=== PATIENT | female | born 1960 | race Caucasian/White ===

== ENCOUNTER → 2023-12-27 11:25 | Outpatient (REF) | payer MEDICARE, SELFPAY | LOC: HWRAD 11:25 | PROVIDERS: ATTENDING PHYSICIAN Student in an Organized Health Care Education/Training Program | DX: R10.32 Left lower quadrant pain (principal); R19.5 Other fecal abnormalities | CPT/HCPCS: 74176 ==

== ENCOUNTER 2024-01-21 12:09 | Emergency (ER) | payer MEDICARE, SELFPAY ==
[2024-01-21] VITALS (7 sets, daily range): BP systolic 123–147; BP diastolic 79–90
[2024-01-21 13:32] LABS: Hematocrit 38.3 % (37.0-47.0); Hemoglobin 13.3 g/dL (12.0-16.0); Mean Corp Hgb Conc. 34.7 g/dL (33.0-37.0); Mean Corpuscular Hgb 31.4 pg (27.0-31.0); Mean Corpuscular Volume 90.3 fL (81.0-99.0); Mean Platelet Volume 10.2 fL (7.4-10.4); Platelet Count 291 10^3/uL (130-400); Red Blood Cell Count 4.24 10^6/uL (4.20-5.40); Red Cell Dist. Width 12.1 % (11.5-14.5); White Blood Cell Count 4.5 10^3/uL (4.8-10.8)
[2024-01-21 13:46] LABS: ALT (SGPT) 32 U/L (0-35); AST (SGOT) 36 U/L (14-36); Albumin 4.3 g/dl (3.5-5.0); Alkaline Phosphatase 60 U/L (38-126); Blood Urea Nitrogen 15 mg/dl (7-17); Calcium 9.5 mg/dl (8.4-10.2); Carbon Dioxide 24 mmol/L (22-30); Chloride 101 mmol/L (98-107); Glucose 120 mg/dl (70-99); Sodium 134 mmol/L (135-145); Total Bilirubin 0.3 mg/dl (0.2-1.3); Total Protein 6.3 g/dl (6.3-8.2); eGFR > 60.00
--- NOTE | 2024-01-21 14:03 | ED.GENMED ---
History of Present Illness
General
Chief Complaint: Abdominal Symptoms
Source: patient
Time Seen by Provider: 01/21/24 12:33
History of Present Illness
History of Present Illness:
This patient is a 63-year-old female who states that about 1 month ago she developed tenderness in her groin that felt like a pulled muscle. She then developed abdominal distention and diarrhea with this. She saw her doctor on December 26,
was referred for CAT scan, and was diagnosed with mild diverticulitis. She changed her diet and did not yet start the prescribed antibiotics and started to feel better. However, by January 14, the pain had returned and she began her
antibiotics which she continues to take now. The pain went away but then came a back mildly yesterday and continues today. She rates it as 4 out of 10 again in the left lower groin area and feels like a pulled muscle. She denies associated
nausea, vomiting, fever, chills, chest pain, shortness of breath, bleeding, or other complaints.
Past History
Past History
ED Past Medical History: Other (Anxiety)
ED Past Surgical History: Cholecystectomy, and Other (Hernia repair, polyp adjacent to colon removal)
Social History
Tobacco: Non-smoker
Alcohol: Occasional
Drug: None
Personal:
Living: with family
Phy Exam
Physical Exam
Physical Exam:
GENERAL: Alert , in no apparent distress
EYE: pupils equal and reactive
NECK: Supple, no significant adenopathy.
ENT: o/p clr, mmm.
CARDIAC: Regular rate and rhythm .
LUNGS: Clear breath sounds bilaterally, no acute respiratory distress, no wheezes/rales/rhonchi
ABDOMEN: Soft, minimal llq tenderness (very minimal), no r/g, no cvat
NEUROLOGICAL: Alert and oriented, no focal neuro deficits
SKIN: Warm and dry, skin intact.
MUSCULOSKELETAL: No edema, well perfused.
PSYCH: Normal and appropriate interaction.
Course
Orders/Labs/Results
Orders:
Orders
01/21/24 13:10
Complete Blood Count/No Diff Urgent
Comprehensive Metabolic Panel Urgent
01/21/24 14:30
CT Abd/pel (oral only)-[facility] Only Urgent
Comment:
Reason For Exam: recent divertic dx, continued pain
Iohexol [Omnipaque] See Protocol PO NOW STA
Abnormal Lab Results
01/21/24
13:10
WBC 4.5 L 10^3/uL
(4.8-10.8)
MCH 31.4 H pg
(27.0-31.0)
Sodium 134 L mmol/L
(135-145)
Glucose 120 H mg/dl
(70-99)
01/21/24 13:10
01/21/24 13:10
Vital Signs
Initial and Last Documented VS:
Initial Vital Signs
Temp Pulse Resp BP Pulse Ox
97.9 F 83 16 147/90 98
01/21/24 12:16 01/21/24 12:16 01/21/24 12:16 01/21/24 12:16 01/21/24 12:16
Last Documented Vital Signs
Temp Pulse Resp BP Pulse Ox
97.9 F 75 16 146/81 97
01/21/24 12:16 01/21/24 18:05 01/21/24 18:05 01/21/24 18:05 01/21/24 18:05
*Critical Care Note
Total Time (30-74mins, 75-104mins- exclusive of procedures): Not Applicable
Update Note
Update Note:
Patient presents to the Emergency Department with
Number and Complexity of Problems Addressed at the Encounter
� Chronic conditions affecting care:
� Acute Exacerbation and/or Progression of Chronic Illness:
� Differential Diagnosis includes: But not limited to worsening diverticulitis, perforation, abscess, nonspecific pain, etc.
Amount and/or Complexity of Data to be Reviewed and Analyzed
� I performed an independent evaluation of and my interpretation is:
EKG:
CT:There is mild residual stranding along the proximal sigmoid colon, decreased from prior and likely due to resolving diverticulitis. No evidence of perforation or adjacent abscess.
No evidence of renal calculus. Normal appendix.
Partially visualized subcentimeter nodule within the right middle lobe, similar to prior.
Unchanged 1.0 cm left adrenal adenoma.
Xrays:
Laboratory Studies: Mild leukopenia not clinically relevant
Other:
� Review of other/old records reveals:
� Clinical information was obtained by an independent historian:
� Prescriptions/Medications Considered but not given:
� Further testing considered but not performed:
Risk of Complications and/or Morbidity or Mortality of Patient Management
� Social determinants of health affecting care:
� Discussion with other providers (PCP, Hospitalists, Consultants, etc):
� Escalation of care including admission/observation vs risk of discharge considered: Long discussion with patient and aware of CT results including incidental findings. I printed out the report for them for follow-up.
Patient is very relieved that she does not have worsening disease and will continue to take her antibiotics and follow the appropriate diet related to diverticulitis. She has GI follow-up scheduled for this upcoming week. Discussed with her
importance of follow-up and reasons return to the ER.
ED Attending Note
-
Portions of this chart may have been created with voice recognition software.� Occasional wrong word or��sound alike� substitutions may have occurred due to the inherent limitations of voice recognition software.
Discharge Plan
Departure
Patient Disposition: Home (Routine Discharge)
Date of Disposition: 01/21/24
Time of Disposition: 18:28
Patient with high blood pressure during this ER visit?: Yes
Condition: Good
Discharge Problem:
Diverticulitis
Instructions: Diverticulitis (DC), BLOOD PRESSURE
Prescriptions:
No Action
No Current Medications
0
Referrals:
Amy Gusman PA-C [Family Provider] -
Activity Restrictions/Additional Instructions:
PLEASE FOLLOW-UP WITH YOUR GI DOCTOR SCHEDULED. IF YOU DEVELOP WORSENING OR NEW PAIN, FEVER, VOMITING INABILITY TO TAKE YOUR ANTIBIOTICS, OR OTHER WORRISOME SIGNS, PLEASE RETURN TO THE ER IMMEDIATELY.
Interventions
Interventions:
*Risk Screen - Suicide Last Done: 01/21/24 12:43
*General Assessment Last Done: 01/21/24 12:16
*Neglect/Abuse Screening Last Done: 01/21/24 12:43
ED- Fall Risk Assessment Last Done: 01/21/24 15:23
*ED COVID-19 Vaccine History Last Done: 01/21/24 12:16
MZ-Ilypuh-Nslsrmgzgq Assessment Last Done: 01/21/24 15:21
Discharge Date and Time
Print Language: WELSH
[2024-01-21] MEDS: OMNIPAQUE 50 ML PO (14:44)
--- NOTE | 2024-01-21 16:30 | EDRN ---
Pt has finished drinking 2nd cup of oral contrast at this time.
--- NOTE | 2024-01-21 17:20 | EDRN ---
This RN asked Dr. Hillman about pt ability to take her medication cephalexin [address] Hillman said pt can take her med w/ sip of water. Pt was informed and is taking her keflex now though pt stated at times she gets nausea when she takes her med w/
out food. Pt will inform this RN if nausea develops.
--- NOTE | 2024-01-21 17:30 | EDRN ---
Pt denies any nausea.
--- NOTE | 2024-01-21 18:25 | EDRN ---
Dr. Hillman in room w/pt at this time.
== END 2024-01-21 19:02 | disposition home or self-care (01) ==
LOC: EMR 12:09
PROVIDERS: EMERGENCY PHYSICIAN Emergency Medicine; FAMILY PHYSICIAN Physician Assistant Medical
DX: K57.92 Diverticulitis of intestine, part unspecified, without perforation or abscess without bleeding (principal); R03.0 Elevated blood-pressure reading, without diagnosis of hypertension; F41.9 Anxiety disorder, unspecified; D35.02 Benign neoplasm of left adrenal gland; R91.1 Solitary pulmonary nodule; Z90.49 Acquired absence of other specified parts of digestive tract; Z88.1 Allergy status to other antibiotic agents; Z91.012 Allergy to eggs; Z91.011 Allergy to milk products; Z88.0 Allergy status to penicillin; Z88.2 Allergy status to sulfonamides; Z91.018 Allergy to other foods
CPT/HCPCS: 99284; 74176; 80053; 85027

== ENCOUNTER → 2024-04-26 07:07 | Outpatient (REF) | payer MEDICARE, SELFPAY | LOC: HWRAD 07:07 | PROVIDERS: ATTENDING PHYSICIAN Physician Assistant Medical | DX: E04.2 Nontoxic multinodular goiter (principal) | CPT/HCPCS: 76536 ==

== ENCOUNTER → 2024-06-11 08:05 | Outpatient (REF) | payer MEDICARE, SELFPAY | LOC: HWRAD 08:05 | PROVIDERS: ATTENDING PHYSICIAN Obstetrics & Gynecology; FAMILY PHYSICIAN Physician Assistant Medical | DX: N95.0 Postmenopausal bleeding (principal) | CPT/HCPCS: 76830; 76856 ==

== ENCOUNTER 2024-12-26 12:06 | Emergency (ER) | payer MEDICARE, SELFPAY ==
[2024-12-26 12:10] VITALS: BP 151/95
[2024-12-26 12:28] LABS: Hematocrit 42.6 % (37.0-47.0); Hemoglobin 14.8 g/dL (12.0-16.0); Mean Corp Hgb Conc. 34.7 g/dL (33.0-37.0); Mean Corpuscular Volume 91.2 fL (81.0-99.0); Nucleated Red Blood Cells % 0 %; Platelet Count 317 10^3/uL (130-400); Red Cell Dist. Width 12.1 % (11.5-14.5)
[2024-12-26 12:51] VITALS: BP 133/109
[2024-12-26 12:56] LABS: ALT (SGPT) 51 U/L (0-35); AST (SGOT) 25 U/L (14-36); Albumin 4.9 g/dl (3.5-5.0); Alkaline Phosphatase 68 U/L (38-126); Blood Urea Nitrogen 17 mg/dl (7-17); Calcium 10.1 mg/dl (8.4-10.2); Carbon Dioxide 27 mmol/L (22-30); Chloride 106 mmol/L (98-107); Glucose 123 mg/dl (70-99); Lipase 38 U/L (23-300); Potassium 4.2 mmol/L (3.5-5.1); Sodium 137 mmol/L (135-145); Total Protein 7.4 g/dl (6.3-8.2); eGFR > 60.00
[2024-12-26 12:57] VITALS: BMI 28.0
[2024-12-26 13:00] VITALS: BP 153/100
[2024-12-26 13:18] LABS: Urine Character Clear (Clear)
[2024-12-26] MEDS: OMNIPAQUE 50 ML PO (13:21)
[2024-12-26 15:00] VITALS: BP 144/87
--- NOTE | 2024-12-26 17:14 | ED.GENMED ---
History of Present Illness
General
Chief Complaint: Abdominal Pain
Time Seen by Provider: 12/26/24 12:38
History of Present Illness
History of Present Illness:
64-year-old female presents the emergency department for evaluation of right lower quadrant abdominal pain associate with nausea vomiting and diarrhea for the past 5 days. Referred by her primary care physician for this. She reports diarrhea is a
newer development in the past 2 to 3 days, loose but not watery, not bloody. Prior abdominal surgery includes cholecystectomy and . No fevers or night sweats.
Past History
Past History
ED Past Medical History: Other (Anxiety)
ED Past Surgical History: Cholecystectomy, and Other (Hernia repair, polyp adjacent to colon removal)
Social History
Tobacco: Non-smoker
Alcohol: Occasional
Drug: None
Personal:
Living: with family
Review of Systems
Review of Systems
Allergies reviewed?: Yes
All Other Systems: ROS reviewed and negative except as documented in HPI and ROS
Phy Exam
Physical Exam
Physical Exam:
GEN: Well appearing, NAD, WDWN
HEENT: Oral mucosa moist, no scleral icterus
Cardiac: Regular rate
Lung: No respiratory distress, no tachypnea
Abdomen: Soft, grossly nontender to palpation x 4 quadrants
MSK: No gross deformity or injuries
Skin: Good color, no pallor or jaundice, no rashes
Neuro: AO x3, moves all extremities freely
Psych: Calm, cooperative
Course
Orders/Labs/Results
Orders:
Orders
12/26/24 12:18
Complete Blood Count/With Diff Urgent
Comprehensive Metabolic Panel Urgent
Lipase Urgent
12/26/24 13:06
Urinalysis Reflex To Culture Urgent
Date Specimen was Collected: 12/26/24
Time Specimen was Collected: 13:04
Urine Microscopic Reflex Cult Urgent
Urine Culture Urgent
JOE Source: U
Specimen Description:
Date Specimen was Collected: 12/26/24
Time Specimen was Collected: 13:04
12/26/24 13:14
Iohexol [Omnipaque] See Protocol PO NOW STA
12/26/24 13:46
CT Abd/pel (oral only)-[facility] Only Urgent
Comment:
Reason For Exam: RLQ pain
Abnormal Lab Results
12/26/24 12/26/24
12:18 13:06
MCH 31.7 H pg
(27.0-31.0)
Absolute Lymphs (auto) 1.1 L 10^3/uL
(1.2-3.4)
Lymphocytes % 19.6 L %
(20.5-51.1)
Glucose 123 H mg/dl
(70-99)
ALT 51 H U/L
(0-35)
Ur Occult Blood Reflex 2+ A
(Negative)
Leukocyte Esterase Rfl 1+ A
(Negative)
Urine RBC 3-6 A /HPF
(0-2)
Urine Bacteria (Reflex) Few A
(Negative)
12/26/24 12:18
12/26/24 12:18
Vital Signs
Initial and Last Documented VS:
Initial Vital Signs
Temp Pulse Resp BP Pulse Ox
99.3 F 80 16 151/95 95
12/26/24 12:10 12/26/24 12:10 12/26/24 12:10 12/26/24 12:10 12/26/24 12:10
Last Documented Vital Signs
Temp Pulse Resp BP Pulse Ox
99.3 F 86 18 152/90 98
12/26/24 12:10 12/26/24 18:21 12/26/24 18:21 12/26/24 18:21 12/26/24 18:21
MDM/Problems Addressed
MDM/Problems Addressed:
Imaging obtained due to the duration of symptoms although lack of tenderness is certainly reassuring. CT reveals terminal ileitis. Given her lack of fever or leukocytosis this is suspicious for inflammatory etiology as opposed to infectious.
Patient is comfortable with with holding empiric antibiotics given her number of antibiotic allergies. Stool studies will be sent as an outpatient and she will follow-up with gastroenterology
*Pulse Oximetry
SaO2: 98
Oxygen Mode of Delivery: Room air
Patient hypoxic: no
*Critical Care Note
Total Time (30-74mins, 75-104mins- exclusive of procedures): Not Applicable
ED Attending Note
-
Portions of this chart may have been created with voice recognition software.� Occasional wrong word or��sound alike� substitutions may have occurred due to the inherent limitations of voice recognition software.
Discharge Plan
Departure
Patient Disposition: Home (Routine Discharge)
Date of Disposition: 12/26/24
Time of Disposition: 17:14
Patient with high blood pressure during this ER visit?: No
Discharge Problem:
Ileitis, terminal
Instructions: Inflammatory Bowel Disease (DC)
Prescriptions:
No Action
No Current Medications
0
Referrals:
Amy Gusman CRNP [Family Provider, General]
Jessica Duncan DO [Active, Gastroenterology]
Activity Restrictions/Additional Instructions:
At this point the cause of your ileitis is not clear. Please obtain stool specimens at your earliest convenience and we will treat based on these findings. Follow-up with gastroenterology soon as possible
Interventions
Interventions:
*Risk Screen - Suicide Last Done: 12/26/24 15:17
*General Assessment Last Done: 12/26/24 15:17
*Neglect/Abuse Screening Last Done: 12/26/24 15:17
*ED- Fall Risk Assessment Last Done: 12/26/24 15:17
*ED COVID-19 Vaccine History Last Done: 12/26/24 15:17
*Nursing Disposition Last Done: 12/26/24 18:21
NM-Inaoam-Jkqwtmytmf Assessment Last Done: 12/26/24 15:15
Discharge Date and Time
Discharge Date/Time: 12/26/24 17:45
Print Language: TAJIK
[2024-12-26 18:21] VITALS: BP 152/90
== END 2024-12-26 17:45 | disposition home or self-care (01) ==
LOC: EMR 12:06
PROVIDERS: Emergency Medicine; Physician Assistant; EMERGENCY PHYSICIAN Student in an Organized Health Care Education/Training Program; FAMILY PHYSICIAN Nurse Practitioner Adult Health
DX: K50.00 Crohn's disease of small intestine without complications (principal); R10.31 Right lower quadrant pain; R11.2 Nausea with vomiting, unspecified; R19.7 Diarrhea, unspecified; Z90.49 Acquired absence of other specified parts of digestive tract; Z98.0 Intestinal bypass and anastomosis status; Z88.1 Allergy status to other antibiotic agents; Z91.041 Radiographic dye allergy status; Z91.012 Allergy to eggs; Z91.011 Allergy to milk products; Z88.0 Allergy status to penicillin; Z88.2 Allergy status to sulfonamides; Z91.018 Allergy to other foods
CPT/HCPCS: 99284; 74176; 80053; 81003; 81015; 83690; 85025; 87086

== ENCOUNTER → 2024-12-28 06:57 | Outpatient (REF) | payer MEDICARE, SELFPAY | LOC: REG 06:57 | PROVIDERS: ATTENDING PHYSICIAN Physician Assistant; FAMILY PHYSICIAN Physician Assistant Medical | DX: K50.00 Crohn's disease of small intestine without complications (principal) | CPT/HCPCS: 87045; 87046; 87324; 87427; 87449 ==

== ENCOUNTER → 2025-05-16 07:57 | Outpatient (REF) | payer MEDICARE, SELFPAY ==
[2025-05-16 08:48] LABS: Hematocrit 40.4 % (37.0-47.0); Hemoglobin 13.8 g/dL (12.0-16.0); Mean Corp Hgb Conc. 34.2 g/dL (33.0-37.0); Mean Corpuscular Volume 92.4 fL (81.0-99.0); Platelet Count 294 10^3/uL (130-400); Red Cell Dist. Width 11.9 % (11.5-14.5)
[2025-05-16 10:50] LABS: ALT (SGPT) 36 U/L (0-35); AST (SGOT) 24 U/L (14-36); Albumin 4.4 g/dl (3.5-5.0); Alkaline Phosphatase 71 U/L (38-126); Blood Urea Nitrogen 19 mg/dl (7-17); Calcium 9.3 mg/dl (8.4-10.2); Carbon Dioxide 26 mmol/L (22-30); Chloride 102 mmol/L (98-107); Glucose 93 mg/dl (70-99); Potassium 4.2 mmol/L (3.5-5.1); Sodium 136 mmol/L (135-145); Total Protein 6.6 g/dl (6.3-8.2); eGFR > 60.00
[2025-05-16 10:58] LABS: C-Reactive Protein < 5.00 mg/L (0.0-10.00)
[2025-05-18 15:41] LABS: Calprotectin, Fecal 18 ug/g (<=49)
== END ==
LOC: REG 07:57
PROVIDERS: ATTENDING PHYSICIAN Student in an Organized Health Care Education/Training Program; FAMILY PHYSICIAN Physician Assistant Medical
DX: K50.00 Crohn's disease of small intestine without complications (principal); R74.01 Elevation of levels of liver transaminase levels
CPT/HCPCS: 36415; 80053; 83993; 85027; 85652; 86140; 87045; 87046; 87328; 87329; 87427